=== PATIENT | female | born 1950 | race Caucasian/White ===

== ENCOUNTER → 2016-10-22 | Outpatient (CLI) | payer MEDICARE ==
[~2016-10-22] MED LIST: BENADRYL 50 MG PO; CARAFATE1 G PO; DIPHENHYDRAMINE50 M1 PO; KADIAN; NYSTATIN5 ML PO; PEPCID 20 MG PO; PERCOCET; POLYETHYLENE GLYCOL; ZANAFLEX 4 MG PO
== END | disposition home or self-care (01) ==
LOC: CIVR 13:05
DX: Z45.2 Encounter for adjustment and management of vascular access device (principal); E86.0 Dehydration; R11.2 Nausea with vomiting, unspecified
CPT/HCPCS: 96374; J2997

== ENCOUNTER → 2017-02-10 | Outpatient (CLI) | payer MEDICARE | END | disposition home or self-care (01) | LOC: CSSDAY 13:16 | DX: T82.898A Other specified complication of vascular prosthetic devices, implants and grafts, initial encounter (principal); E86.0 Dehydration; I87.8 Other specified disorders of veins | CPT/HCPCS: 96374; G0463; J2997 ==

== ENCOUNTER → 2017-03-11 | Outpatient (CLI) | payer MEDICARE ==
--- NOTE | ~2017-03-11 | XA166 ---
[facility] A Service of [facility] RADIOLOGY TEXT RESULTS PATIENT: POPEYE BENOIT LOCATION: CIVR : 50 UNIT #: [id number] AGE: [address]: LUIS MONTIEL SEX: F ORDER DR: [id number] [facility] [address]. [place], [place] [address] [id number] O MR#: [id number] Acc #: [id number] NAME: POPEYE BENOIT. : 1950 SEX: F STUDY DATE/TIME: 03/11/2017 13:51 UNIT: [facility] ROOM: STUDY DESCRIPTION: XA PICC Line Placement WO Port Attending Physician: Luis Montiel M.D. Referring Physician: Luis Montiel M.D. Ordering Physician: Luis Montiel Primary Care Physician: Jose Bradley M.D. MEDICAL IMAGING REPORT This report is preliminary unless electronic signature is present EXAM Left-sided PICC line placement. INDICATION Need for IV access in a patient with history of gastroparesis as well as nausea and vomiting. PRE-PROCEDURE The procedure was explained to the patient and/or patient junior sales representative including risks, benefits, potential complications and potential for alternative forms of treatment. Informed consent was obtained, and prior to initiating the procedure a formal timeout procedure was performed. PROCEDURE Using full standard sterile barrier technique, including caps, gowns, gloves, masks, as well as sterile skin preparation and standard sterile draping, the left arm was prepped and draped in the usual fashion, and real-time sterile ultrasound guidance was used to localize an arm vein and to confirm vessel patency. A hard copy ultrasound image was recorded. After local anesthesia with 1% Xylocaine, the vein was punctured using real-time sterile ultrasound guidance, and an 0.018 guidewire was advanced into the superior vena cava, using fluoroscopic guidance. A 4 Beninese single-lumen PICC was then measured and deployed with the tip positioned in the superior vena cava. The position of the line was documented with a radiographic image. The line was secured in place with an adhesive dressing and an antibiotic patch was applied. Total fluoro time was 0.2 minutes. IMPRESSION Successful placement of a 4 Beninese single lumen PowerPICC via the left arm under ultrasound and fluoroscopic guidance. The tip of the PICC is in good position in the superior vena cava. [facility] A Service of [facility] RADIOLOGY TEXT RESULTS PATIENT: POPEYE BENOIT LOCATION: [facility] : 50 UNIT #: [id number] AGE: [address]: LUIS MONTIEL SEX: F ORDER DR: Dictated by... Jennifer Antoine M.D. THIS IS AN ELECTRONICALLY VERIFIED REPORT Jennifer Antoine M.D. at 03/12/2017 5:50 PM AARON/blake TD: 03/12/2017 11:28 JOB #: [id number] MEDICAL IMAGING REPORT Page 1 of 1 COPY
== END | disposition home or self-care (01) ==
LOC: CIVR 13:04
DX: Z45.2 Encounter for adjustment and management of vascular access device (principal); K31.84 Gastroparesis; E46 Unspecified protein-calorie malnutrition; R11.2 Nausea with vomiting, unspecified; E86.0 Dehydration
CPT/HCPCS: 76937; 77001; C1751; J1642